=== PATIENT | female | born 1945 ===

== ENCOUNTER 2023-03-17 02:05 | Inpatient (IN) | payer MEDICARE ==
[2023-03-17] MEDS ORDERED: Ondansetron PF 4 MG/2 ML Vial IVP PRN ×3 (03:09→13:30)
[2023-03-17] MEDS ORDERED: Ondansetron ODT 4 MG TAB PO PRN (03:09)
[2023-03-17] MEDS ORDERED: Lactated Ringer's 1,000 ML IV SCH ×2 (03:45→06:30)
[2023-03-17] MEDS ORDERED: traMADol HCl 50 MG TAB PO SCH (04:30)
[2023-03-17 04:38] LABS: ALT (SGPT) 31 U/L (8-55); AST (SGOT) 36 U/L (5-34); Albumin 4.6 g/dL (3.4-4.8); Alkaline Phosphatase 105 U/L (40-110); Anion Gap 18 mmol/L (10-20); BUN (Urea Nitrogen) 13 mg/dL (9.8-20.1); Calc. Creatinine Clearance 85 mL/min (70-130); Calcium 9.8 mg/dL (7.8-10.44); Carbon Dioxide 24 mmol/L (23-31); Chloride 103 mmol/L (98-107); Estimated GFR 69; Globulin 3.5 g/dL (2.4-3.5); Glucose 178 mg/dL (83-110); Lipase 31 U/L (8-78); Potassium 4.6 mmol/L (3.5-5.1); Protein, Total 8.1 g/dL (5.8-8.1); Sodium 140 mmol/L (136-145)
[2023-03-17] MEDS ORDERED: D5 LR w/20 mEq KCL 1,000 ML IV SCH (04:45)
[2023-03-17 04:47] LABS: #Basophils 0.1 10x3/uL (0.0-0.2); #Monocytes 0.9 10x3/uL (0.0-1.1); #Neutrophils 15.8 10x3/uL (1.5-8.4); %Basophils 0.3 % (0.0-2.0); %Eosinophils 0.1 % (0.0-6.0); %Lymphocytes 5.8 % (18.0-47.0); %Neutrophils 88.2 % (40.0-75.0); Hemoglobin 16.5 g/dL (12.0-15.5); Mean Corpuscular HGB CONC 31.7 g/dL (32.0-36.0); Mean Corpuscular Hemoglobin 30.5 pg (27.0-33.0); Mean Corpuscular Volume 96.1 fl (81.6-98.3); Platelet Count 226 10x3/uL (150-450); RBC Distribution Width 13.3 % (11.5-14.5); Red Blood Cell (RBC) Count 5.41 10x6/uL (3.90-5.03); White Blood Cell (WBC) Count 17.9 10x3/uL (3.5-10.5)
[2023-03-17] MEDS ORDERED: Aspirin Chewable 81 MG TAB PO SCH (05:00)
[2023-03-17] MEDS ORDERED: Nitroglycerin 0.4 MG TAB (25 Tab Bottle) SL PRN (05:13)
[2023-03-17] MEDS ORDERED: Metoprolol Tartrate 5 MG/5 ML VIAL IVP SCH (05:15)
[2023-03-17] MEDS ORDERED: Furosemide 40 MG/4 ML VIAL SLOW IVP SCH (05:15)
[2023-03-17] MEDS: Nitroglycerin 2% Ointment 1 INCH/1 GM Packet TOP SCH ×3 (05:27→21:10)
[2023-03-17] MEDS ORDERED: Losartan 25 MG TAB PO SCH (05:30)
[2023-03-17] MEDS ORDERED: Ondansetron PF 4 MG/2 ML Vial IVP SCH (05:45)
[2023-03-17] MEDS ORDERED: Aspirin 300 MG Suppository PR SCH (06:45)
[2023-03-17] MEDS ORDERED: Furosemide 100 MG/10 ML VIAL SLOW IVP SCH (07:00)
[2023-03-17 07:40] LABS: INR-International Normal Ratio 1.2; PTT 29.8 sec (22.0-33.0); Prothrombin Time 12.7 sec (9.5-12.1)
[2023-03-17 07:48] LABS: Troponin I 0.735 ng/mL (< 0.028)
[2023-03-17] MEDS ORDERED: Aspirin 81 mg Enteric Coated Tablet PO SCH (09:00)
[2023-03-17] MEDS: Sotalol HCl 80 MG TAB PO SCH ×2 (09:10→21:12)
[2023-03-17 12:10] LABS: Troponin I 1.183 ng/mL (< 0.028)
[2023-03-17] MEDS ORDERED: Pantoprazole 40 MG VIAL IVP SCH (13:30)
[2023-03-17] MEDS: Mag-Al Plus 1200 MG/1200 MG/120 MG/30 ML UDCUP PO PRN (13:38)
[2023-03-17] MEDS: traMADol HCl 50 MG TAB PO PRN ×2 (15:56→21:10)
[2023-03-17 16:05] LABS: Troponin I 1.014 ng/mL (< 0.028)
[2023-03-17] MEDS: niCARdipine 25 MG in Sodium Chloride 0.9% 250 ML 250 ML IVPB SCH (18:26)
[2023-03-17] MEDS: Atorvastatin Calcium 40 MG TAB PO SCH ×2 (21:10→21:21)
[2023-03-18] MEDS: Nitroglycerin 2% Ointment 1 INCH/1 GM Packet TOP SCH ×3 (05:38→20:42)
[2023-03-18] MEDS: niCARdipine 25 MG in Sodium Chloride 0.9% 250 ML 250 ML IVPB SCH (05:38)
[2023-03-18] MEDS: Furosemide 40 MG/4 ML VIAL SLOW IVP SCH ×2 (05:38→14:41)
[2023-03-18] MEDS: traMADol HCl 50 MG TAB PO PRN (07:30)
[2023-03-18] MEDS: Aspirin 81 mg Enteric Coated Tablet PO SCH (08:12)
[2023-03-18] MEDS: Sotalol HCl 80 MG TAB PO SCH ×2 (08:12→20:43)
[2023-03-18] MEDS: Pantoprazole 40 MG VIAL IVP SCH (08:12)
[2023-03-18] MEDS: Losartan 25 MG TAB PO SCH (08:14)
[2023-03-18] MEDS: Apixaban 2.5 MG TAB PO SCH (20:43)
[2023-03-18] MEDS: Atorvastatin Calcium 40 MG TAB PO SCH (20:44)
[2023-03-19 04:19] LABS: Hemoglobin 15.9 g/dL (12.0-15.5); Mean Corpuscular HGB CONC 32.7 g/dL (32.0-36.0); Mean Corpuscular Hemoglobin 30.6 pg (27.0-33.0); Mean Corpuscular Volume 93.5 fl (81.6-98.3); Mean Platelet Volume 12.2 fl (7.4-10.4); Platelet Count 180 10x3/uL (150-450); RBC Distribution Width 13.5 % (11.5-14.5); White Blood Cell (WBC) Count 15.8 10x3/uL (3.5-10.5)
[2023-03-19 04:20] LABS: MDiff Complete? YES
[2023-03-19 04:34] LABS: Anion Gap 14 mmol/L (10-20); BUN (Urea Nitrogen) 31 mg/dL (9.8-20.1); Calc. Creatinine Clearance 84 mL/min (70-130); Calcium 9.1 mg/dL (7.8-10.44); Carbon Dioxide 28 mmol/L (23-31); Chloride 100 mmol/L (98-107); Estimated GFR 70; Glucose 132 mg/dL (83-110); Potassium 3.4 mmol/L (3.5-5.1); Sodium 139 mmol/L (136-145)
[2023-03-19 05:12] LABS: Band 20 % (5-11); Lymphocytes 5 % (21-51); Monocytes 15 % (0-10); Neutrophil 60 % (42-75)
[2023-03-19 05:13] LABS: Platelet Adequacy Comment Appears Adequate; RBC Morph Comment Within Normal Limits
[2023-03-19] MEDS: Furosemide 40 MG/4 ML VIAL SLOW IVP SCH (06:11)
[2023-03-19] MEDS: Nitroglycerin 2% Ointment 1 INCH/1 GM Packet TOP SCH (06:11)
[2023-03-19] MEDS: traMADol HCl 50 MG TAB PO PRN ×2 (07:05→13:06)
[2023-03-19] MEDS: Pantoprazole 40 MG VIAL IVP SCH (08:13)
[2023-03-19] MEDS: Aspirin 81 mg Enteric Coated Tablet PO SCH (08:13)
[2023-03-19] MEDS: Apixaban 2.5 MG TAB PO SCH (08:13)
[2023-03-19] MEDS: Losartan 25 MG TAB PO SCH (08:14)
[2023-03-19] MEDS: Sotalol HCl 80 MG TAB PO SCH ×2 (08:16→20:54)
[2023-03-19] MEDS ORDERED: Potassium Chloride 20 MEQ TAB PO SCH (10:00)
[2023-03-19] MEDS ORDERED: Polyethylene Glycol 3350 17 GM Packet PO PRN (10:22)
[2023-03-19] MEDS ORDERED: Iopamidol 300 61% 100 ML VIAL FS ONE (10:29)
[2023-03-19] MEDS ORDERED: Polyethylene Glycol 3350 17 GM Packet PO SCH (11:00)
[2023-03-19] MEDS ORDERED: Spironolactone 25 MG TAB PO SCH (12:00)
[2023-03-19] MEDS: Mag-Al Plus 1200 MG/1200 MG/120 MG/30 ML UDCUP PO PRN (14:26)
[2023-03-19] MEDS ORDERED: diphenhydrAMINE 12.5 MG in Sodium Chloride 0.9% 50 ML IVPB PRN (16:39)
[2023-03-19] MEDS ORDERED: Bisacodyl 10 MG SUPP PR PRN (16:50)
[2023-03-19] MEDS ORDERED: diphenhydrAMINE 50 MG/ML VIAL IVP PRN (16:57)
[2023-03-19] MEDS: Morphine 2 MG/ML VIAL SLOW IVP PRN (17:12)
[2023-03-19] MEDS: diphenhydrAMINE 50 MG/ML VIAL IVP PRN (17:12)
[2023-03-19 17:37] LABS: Hemoglobin 17.7 g/dL (12.0-15.5); MDiff Complete? YES; Mean Corpuscular Hemoglobin 30.4 pg (27.0-33.0); Mean Corpuscular Volume 92.3 fl (81.6-98.3); Mean Platelet Volume 11.8 fl (7.4-10.4); Platelet Count 194 10x3/uL (150-450); RBC Distribution Width 13.3 % (11.5-14.5); Red Blood Cell (RBC) Count 5.82 10x6/uL (3.90-5.03); White Blood Cell (WBC) Count 17.8 10x3/uL (3.5-10.5)
[2023-03-19 19:31] LABS: Band 16 % (5-11); Eosinophils 1 % (0-10); Lymphocytes 16 % (21-51); Monocytes 7 % (0-10); Neutrophil 54 % (42-75); Other Cell Types 1; Reactive Lymphocytes 5 % (0-10)
[2023-03-19 19:34] LABS: RBC Morph Comment Within Normal Limits; Reflex for Review?? YES; Toxic Granulation SLIGHT
[2023-03-19 19:35] LABS: Dohle Bodies SLIGHT; Platelet Adequacy Comment PLT clumps seen-ADEQ; Platelet Clumps SLIGHT; Vacuoles SLIGHT
[2023-03-19] MEDS ORDERED: Lactated Ringer's 500 ML IV SCH (19:45)
[2023-03-19 20:06] LABS: ALT (SGPT) 20 U/L (8-55); AST (SGOT) 24 U/L (5-34); Albumin 3.7 g/dL (3.4-4.8); Alkaline Phosphatase 103 U/L (40-110); Bilirubin, Direct 0.8 mg/dL (0.1-0.3); Bilirubin, Total 1.6 mg/dL (0.2-1.2); CRP (Inflammatory) 24.64 mg/dL (= or < 0.5); Protein, Total 7.2 g/dL (5.8-8.1)
[2023-03-19 20:29] LABS: CKMB 0.8 ng/mL (0-6.6)
[2023-03-19] MEDS: metroNIDAZOLE 500 MG in Premix Bag 1 BAG IVPB SCH ×2 (20:48→21:15)
[2023-03-19] MEDS ORDERED: Losartan 25 MG TAB PO SCH (21:00)
[2023-03-19] MEDS ORDERED: Cefepime 1 GM in Sodium Chloride 0.9% 100 ML IVPB SCH (21:00)
[2023-03-19] MEDS: Atorvastatin Calcium 40 MG TAB PO SCH (21:14)
[2023-03-19] MEDS ORDERED: metroNIDAZOLE 500 MG in Premix Bag 1 BAG IVPB SCH (22:00)
[2023-03-19] MEDS ORDERED: Metoprolol Tartrate 5 MG/5 ML VIAL IVP PRN (23:57)
[2023-03-20] MEDS ORDERED: Meropenem 1 GM in Sodium Chloride 0.9% 100 ML IVPB SCH ×3 (01:00→21:00)
[2023-03-20 03:23] LABS: Anion Gap 19 mmol/L (10-20); BUN (Urea Nitrogen) 41 mg/dL (9.8-20.1); Calc. Creatinine Clearance 63 mL/min (70-130); Calcium 8.9 mg/dL (7.8-10.44); Carbon Dioxide 25 mmol/L (23-31); Chloride 100 mmol/L (98-107); Estimated GFR 51; Glucose 130 mg/dL (83-110); Potassium 3.6 mmol/L (3.5-5.1); Sodium 140 mmol/L (136-145)
[2023-03-20 04:04] LABS: Hemoglobin 17.9 g/dL (12.0-15.5); Mean Corpuscular HGB CONC 32.3 g/dL (32.0-36.0); Mean Corpuscular Volume 93.1 fl (81.6-98.3); Mean Platelet Volume 12.5 fl (7.4-10.4); Platelet Count 174 10x3/uL (150-450); RBC Distribution Width 13.3 % (11.5-14.5); Red Blood Cell (RBC) Count 5.96 10x6/uL (3.90-5.03); White Blood Cell (WBC) Count 6.3 10x3/uL (3.5-10.5)
[2023-03-20] MEDS ORDERED: Lactated Ringer's 1,000 ML IV SCH (06:00)
[2023-03-20 06:21] LABS: Band 9 % (5-11); Lymphocytes 8 % (21-51); Monocytes 16 % (0-10)
[2023-03-20 06:22] LABS: Neutrophil 67 % (42-75); Platelet Adequacy Comment Appears Adequate; RBC Morph Comment Within Normal Limits
[2023-03-20] MEDS: Metoprolol Tartrate 5 MG/5 ML VIAL IVP SCH ×2 (08:58→21:11)
[2023-03-20] MEDS: Pantoprazole 40 MG VIAL IVP SCH (09:54)
[2023-03-21 06:39] LABS: Hemoglobin 15.1 g/dL (12.0-15.5); MDiff Complete? YES; Mean Corpuscular HGB CONC 32.5 g/dL (32.0-36.0); Mean Corpuscular Hemoglobin 30.4 pg (27.0-33.0); Mean Corpuscular Volume 93.5 fl (81.6-98.3); Mean Platelet Volume 12.4 fl (7.4-10.4); Platelet Count 139 10x3/uL (150-450); RBC Distribution Width 13.6 % (11.5-14.5); Red Blood Cell (RBC) Count 4.96 10x6/uL (3.90-5.03); White Blood Cell (WBC) Count 8.8 10x3/uL (3.5-10.5)
[2023-03-21 06:49] LABS: Anion Gap 20 mmol/L (10-20); BUN (Urea Nitrogen) 72 mg/dL (9.8-20.1); Calc. Creatinine Clearance 34 mL/min (70-130); Calcium 8.6 mg/dL (7.8-10.44); Carbon Dioxide 27 mmol/L (23-31); Chloride 102 mmol/L (98-107); Estimated GFR 24; Glucose 112 mg/dL (83-110); Potassium 3.5 mmol/L (3.5-5.1); Sodium 145 mmol/L (136-145)
[2023-03-21 07:11] LABS: Band 32 % (5-11); Lymphocytes 18 % (21-51); Metamyelocyte 1 % (0-0); Monocytes 13 % (0-10); Neutrophil 34 % (42-75); Reactive Lymphocytes 2 % (0-10)
[2023-03-21 07:14] LABS: Dohle Bodies SLIGHT; Vacuoles SLIGHT
[2023-03-21] MEDS ORDERED: Sodium Chloride 0.9% 1,000 ML IV SCH (07:15)
[2023-03-21 07:20] LABS: Large Platelets SLIGHT (None Seen); Platelet Adequacy Comment Appears Adequate
[2023-03-21 07:21] LABS: RBC Morph Comment Within Normal Limits
[2023-03-21] MEDS: Sodium Chloride 0.9% 1,000 ML IV SCH ×2 (07:23→22:29)
[2023-03-21] MEDS: Metoprolol Tartrate 5 MG/5 ML VIAL IVP SCH ×2 (10:26→22:28)
[2023-03-21] MEDS: Meropenem 500 MG in Sodium Chloride 0.9% 100 ML IVPB SCH ×2 (10:34→22:28)
[2023-03-21] MEDS: Pantoprazole 40 MG VIAL IVP SCH (10:34)
[2023-03-21] MEDS ORDERED: Potassium Chloride 10 MEQ in Premix Bag 1 BAG IVPB SCH (11:00)
[2023-03-21] MEDS: Morphine 2 MG/ML VIAL SLOW IVP PRN ×2 (15:22→22:27)
[2023-03-21] MEDS: diphenhydrAMINE 50 MG/ML VIAL IVP PRN ×2 (15:23→22:28)
[2023-03-22] MEDS: Morphine 2 MG/ML VIAL SLOW IVP PRN (02:42)
[2023-03-22] MEDS: diphenhydrAMINE 50 MG/ML VIAL IVP PRN (02:42)
[2023-03-22 03:48] LABS: Hemoglobin 14.4 g/dL (12.0-15.5); Mean Corpuscular HGB CONC 31.6 g/dL (32.0-36.0); Mean Platelet Volume 12.5 fl (7.4-10.4); Platelet Count 128 10x3/uL (150-450); RBC Distribution Width 13.6 % (11.5-14.5); White Blood Cell (WBC) Count 7.8 10x3/uL (3.5-10.5)
[2023-03-22 03:53] LABS: Anion Gap 17 mmol/L (10-20); BUN (Urea Nitrogen) 54 mg/dL (9.8-20.1); Calc. Creatinine Clearance 79 mL/min (70-130); Calcium 8.6 mg/dL (7.8-10.44); Carbon Dioxide 25 mmol/L (23-31); Chloride 108 mmol/L (98-107); Estimated GFR 66; Glucose 96 mg/dL (83-110); Potassium 3.2 mmol/L (3.5-5.1); Sodium 147 mmol/L (136-145)
[2023-03-22 03:55] LABS: MDiff Complete? YES
[2023-03-22 04:36] LABS: Band 12 % (5-11); Eosinophils 1 % (0-10); Lymphocytes 12 % (21-51); Monocytes 9 % (0-10); Neutrophil 66 % (42-75)
[2023-03-22 04:38] LABS: Platelet Adequacy Comment Appears Decreased
[2023-03-22] MEDS: Potassium Chloride 20 MEQ in Premix Bag 1 BAG IVPB SCH ×2 (05:37→09:05)
[2023-03-22] MEDS ORDERED: Meropenem 1 GM in Sodium Chloride 0.9% 100 ML IVPB SCH (06:30)
[2023-03-22] MEDS: Pantoprazole 40 MG VIAL IVP SCH (09:06)
[2023-03-22] MEDS: Metoprolol Tartrate 5 MG/5 ML VIAL IVP SCH (09:06)
[2023-03-22] MEDS: D5 1/2 NS w/40 mEq KCL 1,000 ML IV SCH (09:29)
[2023-03-22] MEDS: Meropenem 1 GM in Sodium Chloride 0.9% 100 ML IVPB SCH ×2 (15:00→22:33)
[2023-03-23] MEDS: D5 1/2 NS w/40 mEq KCL 1,000 ML IV SCH ×2 (02:16→15:27)
[2023-03-23] MEDS: diphenhydrAMINE 50 MG/ML VIAL IVP PRN (04:21)
[2023-03-23] MEDS: Morphine 2 MG/ML VIAL SLOW IVP PRN (04:22)
[2023-03-23] MEDS: Metoprolol Tartrate 5 MG/5 ML VIAL IVP SCH ×2 (04:28→09:24)
[2023-03-23] MEDS: Meropenem 1 GM in Sodium Chloride 0.9% 100 ML IVPB SCH ×3 (06:02→21:16)
[2023-03-23] MEDS: Pantoprazole 40 MG VIAL IVP SCH (09:24)
[2023-03-23 10:12] LABS: #Basophils 0.1 10x3/uL (0.0-0.2); #Eosinphils 0.1 10x3/uL (0.0-0.5); #Monocytes 0.9 10x3/uL (0.0-1.1); #Neutrophils 6.1 10x3/uL (1.5-8.4); %Eosinophils 1.6 % (0.0-6.0); %Lymphocytes 11.1 % (18.0-47.0); %Neutrophils 73.5 % (40.0-75.0); Hemoglobin 15.8 g/dL (12.0-15.5); Mean Corpuscular HGB CONC 31.2 g/dL (32.0-36.0); Mean Corpuscular Hemoglobin 30.2 pg (27.0-33.0); Mean Corpuscular Volume 96.7 fl (81.6-98.3); Mean Platelet Volume 12.4 fl (7.4-10.4); Platelet Count 138 10x3/uL (150-450); RBC Distribution Width 13.8 % (11.5-14.5); Red Blood Cell (RBC) Count 5.23 10x6/uL (3.90-5.03); White Blood Cell (WBC) Count 8.3 10x3/uL (3.5-10.5)
[2023-03-23 10:23] LABS: Anion Gap 16 mmol/L (10-20); BUN (Urea Nitrogen) 27 mg/dL (9.8-20.1); Calc. Creatinine Clearance 86 mL/min (70-130); Calcium 8.8 mg/dL (7.8-10.44); Carbon Dioxide 25 mmol/L (23-31); Chloride 111 mmol/L (98-107); Estimated GFR 75; Glucose 170 mg/dL (83-110); Potassium 3.9 mmol/L (3.5-5.1); Sodium 148 mmol/L (136-145)
[2023-03-23] MEDS: Apixaban 5 MG TAB PO SCH (21:13)
[2023-03-23] MEDS: Sotalol HCl 80 MG TAB PO SCH (21:14)
[2023-03-23 23:35] LABS: Campy jejuni + coli by PCR Negative (Negative); STEC Shiga Toxin 1+2 Negative (Negative); Salmonella spp. by PCR Negative (Negative); Shigella spp + EIEC by PCR Negative (Negative)
[2023-03-24] MEDS: D5 1/2 NS w/40 mEq KCL 1,000 ML IV SCH ×2 (02:25→14:15)
[2023-03-24 03:31] LABS: #Basophils 0.1 10x3/uL (0.0-0.2); #Eosinphils 0.1 10x3/uL (0.0-0.5); #Monocytes 1.3 10x3/uL (0.0-1.1); #Neutrophils 8.9 10x3/uL (1.5-8.4); %Basophils 0.7 % (0.0-2.0); %Eosinophils 1.2 % (0.0-6.0); %Lymphocytes 12.2 % (18.0-47.0); %Monocytes 10.4 % (0.0-10.0); %Neutrophils 73.5 % (40.0-75.0); Hemoglobin 15.2 g/dL (12.0-15.5); Mean Corpuscular HGB CONC 31.9 g/dL (32.0-36.0); Mean Corpuscular Hemoglobin 30.3 pg (27.0-33.0); Mean Corpuscular Volume 94.8 fl (81.6-98.3); Mean Platelet Volume 12.9 fl (7.4-10.4); Platelet Count 147 10x3/uL (150-450); RBC Distribution Width 13.8 % (11.5-14.5); Red Blood Cell (RBC) Count 5.02 10x6/uL (3.90-5.03); White Blood Cell (WBC) Count 12.1 10x3/uL (3.5-10.5)
[2023-03-24 03:38] LABS: INR-International Normal Ratio 1.1; Prothrombin Time 11.7 sec (9.5-12.1)
[2023-03-24 03:42] LABS: Anion Gap 13 mmol/L (10-20); BUN (Urea Nitrogen) 17 mg/dL (9.8-20.1); Calc. Creatinine Clearance 97 mL/min (70-130); Calcium 8.5 mg/dL (7.8-10.44); Carbon Dioxide 23 mmol/L (23-31); Chloride 112 mmol/L (98-107); Estimated GFR 86; Glucose 120 mg/dL (83-110); Potassium 4.3 mmol/L (3.5-5.1); Sodium 144 mmol/L (136-145)
[2023-03-24] MEDS: Meropenem 1 GM in Sodium Chloride 0.9% 100 ML IVPB SCH ×3 (05:29→22:00)
[2023-03-24] MEDS ORDERED: Ondansetron PF 4 MG/2 ML Vial IVP PRN (06:14)
[2023-03-24] MEDS: Apixaban 5 MG TAB PO SCH ×2 (09:08→20:48)
[2023-03-24] MEDS: Sotalol HCl 80 MG TAB PO SCH ×2 (09:08→20:48)
[2023-03-24] MEDS: Pantoprazole 40 MG VIAL IVP SCH (09:09)
[2023-03-24] MEDS ORDERED: Meropenem 1 GM VIAL ONE (14:14)
[2023-03-24] MEDS ORDERED: Simethicone Chewable 80 MG TAB PO SCH (20:45)
[2023-03-24] MEDS: diphenhydrAMINE 50 MG/ML VIAL IVP PRN (21:49)
[2023-03-24] MEDS: Morphine 2 MG/ML VIAL SLOW IVP PRN (21:49)
[2023-03-25] MEDS: D5 1/2 NS w/40 mEq KCL 1,000 ML IV SCH (02:11)
[2023-03-25] MEDS ORDERED: Simethicone Chewable 80 MG TAB PO SCH (02:15)
[2023-03-25 03:45] LABS: Hemoglobin 14.8 g/dL (12.0-15.5); Mean Corpuscular HGB CONC 31.5 g/dL (32.0-36.0); Mean Corpuscular Hemoglobin 29.8 pg (27.0-33.0); Mean Corpuscular Volume 94.8 fl (81.6-98.3); Mean Platelet Volume 13.1 fl (7.4-10.4); Platelet Count 154 10x3/uL (150-450); RBC Distribution Width 13.7 % (11.5-14.5); Red Blood Cell (RBC) Count 4.96 10x6/uL (3.90-5.03); White Blood Cell (WBC) Count 14.4 10x3/uL (3.5-10.5)
[2023-03-25 03:57] LABS: Anion Gap 12 mmol/L (10-20); BUN (Urea Nitrogen) 12 mg/dL (9.8-20.1); Calc. Creatinine Clearance 111 mL/min (70-130); Calcium 8.5 mg/dL (7.8-10.44); Carbon Dioxide 21 mmol/L (23-31); Chloride 109 mmol/L (98-107); Estimated GFR 90; Glucose 117 mg/dL (83-110); Magnesium 1.8 mg/dL (1.6-2.6); Sodium 137 mmol/L (136-145)
[2023-03-25 03:58] LABS: MDiff Complete? YES
[2023-03-25 04:40] LABS: Platelet Adequacy Comment Appears Adequate; RBC Morph Comment Within Normal Limits
[2023-03-25 04:42] LABS: Band 6 % (5-11); Eosinophils 2 % (0-10); Lymphocytes 15 % (21-51); Monocytes 6 % (0-10); Neutrophil 70 % (42-75); Reactive Lymphocytes 1 % (0-10)
[2023-03-25] MEDS: Meropenem 1 GM in Sodium Chloride 0.9% 100 ML IVPB SCH ×3 (05:39→22:36)
[2023-03-25] MEDS: Pantoprazole 40 MG VIAL IVP SCH (09:31)
[2023-03-25] MEDS: Apixaban 5 MG TAB PO SCH ×2 (09:31→21:09)
[2023-03-25] MEDS: Sotalol HCl 80 MG TAB PO SCH ×2 (09:31→21:09)
[2023-03-25] MEDS ORDERED: Meropenem 1 GM VIAL ONE (14:10)
[2023-03-25] MEDS ORDERED: Magnesium Sulfate/D5W 1 GM/100 ML BAG ONE (14:11)
[2023-03-25] MEDS: Morphine 2 MG/ML VIAL SLOW IVP PRN (22:25)
[2023-03-25] MEDS: diphenhydrAMINE 50 MG/ML VIAL IVP PRN (22:26)
[2023-03-26] MEDS: Meropenem 1 GM in Sodium Chloride 0.9% 100 ML IVPB SCH ×2 (05:55→14:15)
[2023-03-26] MEDS: Apixaban 5 MG TAB PO SCH ×2 (10:05→21:48)
[2023-03-26] MEDS: Sotalol HCl 80 MG TAB PO SCH ×2 (10:05→21:48)
[2023-03-26] MEDS: Pantoprazole 40 MG VIAL IVP SCH (10:05)
[2023-03-26] MEDS: metroNIDAZOLE 500 MG TAB PO SCH ×2 (15:23→21:48)
[2023-03-26] MEDS: diphenhydrAMINE 50 MG/ML VIAL IVP PRN (18:14)
[2023-03-26] MEDS: Morphine 2 MG/ML VIAL SLOW IVP PRN (18:15)
[2023-03-26] MEDS: Cefdinir 300 MG CAP PO SCH (21:47)
[2023-03-27] MEDS ORDERED: Acetaminophen 500 MG TAB PO SCH (03:30)
[2023-03-27] MEDS: Cefdinir 300 MG CAP PO SCH ×2 (09:43→22:36)
[2023-03-27] MEDS: Apixaban 5 MG TAB PO SCH ×2 (09:43→21:11)
[2023-03-27] MEDS: metroNIDAZOLE 500 MG TAB PO SCH ×3 (09:44→22:38)
[2023-03-27] MEDS: Sotalol HCl 80 MG TAB PO SCH ×2 (09:44→21:11)
[2023-03-27 17:26] LABS: Hemoglobin 14.7 g/dL (12.0-15.5); MDiff Complete? YES; Mean Corpuscular HGB CONC 30.1 g/dL (32.0-36.0); Mean Corpuscular Hemoglobin 30.2 pg (27.0-33.0); Mean Corpuscular Volume 100.2 fl (81.6-98.3); Mean Platelet Volume 13.6 fl (7.4-10.4); Platelet Count 155 10x3/uL (150-450); RBC Distribution Width 13.6 % (11.5-14.5); Red Blood Cell (RBC) Count 4.87 10x6/uL (3.90-5.03); White Blood Cell (WBC) Count 12.4 10x3/uL (3.5-10.5)
[2023-03-27 17:29] LABS: Lymphocytes 11 % (21-51); Macrocytosis SLIGHT = 6-15 cells (100X) (0-5/hpf); Monocytes 2 % (0-10); Neutrophil 84 % (42-75); Poikilocytosis SLIGHT = 6-15 cells (100X) (0-5/hpf); Reactive Lymphocytes 3 % (0-10)
[2023-03-27 17:30] LABS: Platelet Adequacy Comment Appears Adequate
[2023-03-27] MEDS: Morphine 2 MG/ML VIAL SLOW IVP PRN (21:01)
[2023-03-27] MEDS: diphenhydrAMINE 50 MG/ML VIAL IVP PRN (21:01)
[2023-03-28] MEDS: Apixaban 5 MG TAB PO SCH (09:06)
[2023-03-28] MEDS: Sotalol HCl 80 MG TAB PO SCH (09:06)
[2023-03-28] MEDS: metroNIDAZOLE 500 MG TAB PO SCH (09:07)
[2023-03-28] MEDS: Cefdinir 300 MG CAP PO SCH ×2 (09:08→09:17)
[2023-03-28 09:42] LABS: #Basophils 0.1 10x3/uL (0.0-0.2); #Eosinphils 0.2 10x3/uL (0.0-0.5); #Monocytes 0.7 10x3/uL (0.0-1.1); #Neutrophils 10.2 10x3/uL (1.5-8.4); %Basophils 0.9 % (0.0-2.0); %Eosinophils 1.6 % (0.0-6.0); %Lymphocytes 15.5 % (18.0-47.0); %Neutrophils 76.3 % (40.0-75.0); Hemoglobin 14.3 g/dL (12.0-15.5); Mean Corpuscular HGB CONC 31.8 g/dL (32.0-36.0); Mean Corpuscular Hemoglobin 29.8 pg (27.0-33.0); Mean Corpuscular Volume 93.8 fl (81.6-98.3); Mean Platelet Volume 12.6 fl (7.4-10.4); Platelet Count 255 10x3/uL (150-450); RBC Distribution Width 13.4 % (11.5-14.5); White Blood Cell (WBC) Count 13.4 10x3/uL (3.5-10.5)
[2023-03-28 10:42] VITALS: TEMP 97.6
[2023-03-28 10:47] VITALS: BP 106/68
[2023-03-28 13:53] VITALS: BMI 36.3
[2023-03-28 14:05] LABS: Anion Gap 14 mmol/L (10-20); BUN (Urea Nitrogen) 12 mg/dL (9.8-20.1); Calc. Creatinine Clearance 96 mL/min (70-130); Calcium 8.2 mg/dL (7.8-10.44); Carbon Dioxide 21 mmol/L (23-31); Chloride 105 mmol/L (98-107); Estimated GFR 78; Glucose 114 mg/dL (83-110); Potassium 4.9 mmol/L (3.5-5.1); Sodium 135 mmol/L (136-145)
[2023-03-29 07:18] LABS: Adenovirus F 40-41 Not Detected (Not Detected); Astrovirus Not Detected (Not Detected); Campylobacter by PCR Not Detected (Not Detected); Cryptosporidium Not Detected (Not Detected); Cyclospora cayetanensis Not Detected (Not Detected); Entamoeba histolytica Not Detected (Not Detected); Enteroaggregative E. coli Not Detected (Not Detected); Enteropathogenic E. coli Not Detected (Not Detected); Enterotoxigenic E. coli Not Detected (Not Detected); Giardia lamblia Not Detected (Not Detected); Norovirus GI-GII Not Detected (Not Detected); Plesiomonas shigelloides Not Detected (Not Detected); Rotavirus A Not Detected (Not Detected); Salmonella Not Detected (Not Detected); Sapovirus Not Detected (Not Detected); Shiga-toxin-producing E coli Not Detected (Not Detected); Shigella/Enteroinvasive E coli Not Detected (Not Detected); Vibrio Not Detected (Not Detected); Vibrio cholerae Not Detected (Not Detected); Yersinia enterocolitica Not Detected (Not Detected)
== END 2023-03-28 14:28 | DRG 280 ==
LOC: INTOOBSV 02:05 → CSHTELE 02:05 → OBSVTOIN 06:54 → CSHIMCU 07:25 → CSHTELE 03-25 13:08
PROVIDERS: ADMIT Family Medicine; ATTEND Internal Medicine
PROC: 5A09557 Assistance with Respiratory Ventilation, Greater than 96 Consecutive Hours, Continuous Positive Airway Pressure (ICD-10-PCS; 2023-03-17)
PROC: 0D9670Z Drainage of Stomach with Drainage Device, Via Natural or Artificial Opening (ICD-10-PCS; principal; 2023-03-19)
PROC: 5A0945A Assistance with Respiratory Ventilation, 24-96 Consecutive Hours, High Flow/Velocity Cannula (ICD-10-PCS; 2023-03-20)
DX: I16.1 Hypertensive emergency (principal); I50.21 Acute systolic (congestive) heart failure; I21.A1 Myocardial infarction type 2; J15.9 Unspecified bacterial pneumonia; J96.01 Acute respiratory failure with hypoxia; J69.0 Pneumonitis due to inhalation of food and vomit; K56.7 Ileus, unspecified; N17.9 Acute kidney failure, unspecified; E87.0 Hyperosmolality and hypernatremia; K56.609 Unspecified intestinal obstruction, unspecified as to partial versus complete obstruction; K52.9 Noninfective gastroenteritis and colitis, unspecified; I11.0 Hypertensive heart disease with heart failure; E87.6 Hypokalemia; Z96.653 Presence of artificial knee joint, bilateral; Z96.641 Presence of right artificial hip joint; E78.5 Hyperlipidemia, unspecified; R94.31 Abnormal electrocardiogram [ECG] [EKG]; I48.0 Paroxysmal atrial fibrillation; D45 Polycythemia vera; E86.0 Dehydration; I16.0 Hypertensive urgency; D69.6 Thrombocytopenia, unspecified; K59.00 Constipation, unspecified; E80.6 Other disorders of bilirubin metabolism; Z95.0 Presence of cardiac pacemaker; Z88.0 Allergy status to penicillin; Z88.8 Allergy status to other drugs, medicaments and biological substances; Z79.899 Other long term (current) drug therapy; Z79.82 Long term (current) use of aspirin; Z82.49 Family history of ischemic heart disease and other diseases of the circulatory system; Z98.890 Other specified postprocedural states; Z90.49 Acquired absence of other specified parts of digestive tract
CPT/HCPCS: 36415; 71045; 74174; 74177; 76705; 80048; 80053; 80061; 80076; 82274; 82553; 83036; 83605; 83630; 83690; 83735; 84145; 84484; 85025; 85060; 85610; 85730; 86140; 87015; 87040; 87206; 87324; 87449; 87505; 87507; 93005; 93010; 93306; 94640; 94760; 94762; 96372; 96374; 96375; C9113; G0378; J0692; J1200; J1650; J1940; J2185; J2272; J2405; J3475; J3480; J3490; J7050; J7120; Q9967